=== PATIENT | female | born 1975 | race African-American/Black ===

== ENCOUNTER 2022-07-04 04:09 | Day surgery (SDC) | payer OTHER ==
[2022-06-28 13:00] VITALS: BMI 40.7
[2022-07-04] MEDS ORDERED: PROPOFOL 20 ML ONE (11:57)
[2022-07-04] MEDS ORDERED: MIDAZOLAM HCL 2 MG/2 ML SINGLE DOSE VIAL ONE (11:57)
[2022-07-04] MEDS ORDERED: LIDOCAINE HCL 2% 100 MG/5 ML DISP.SYRIN ONE (11:57)
[2022-07-04] MEDS ORDERED: LIDOCAINE HCL 2% (20ML MULTI-DOSE VIAL) ONE (12:14)
[2022-07-04] MEDS ORDERED: BUPIVACAINE HCL/PF 0.25% (2.5MG/ML) 10 ML VIAL ONE (12:14)
[2022-07-04] MEDS ORDERED: ceFAZolin SODIUM 1 GM VIAL ONE (12:22)
[2022-07-04] MEDS ORDERED: DEXAMETHASONE SOD PHOSPHATE 4 MG/1 ML VIAL ONE (12:22)
[2022-07-04] MEDS ORDERED: ceFAZolin SODIUM 1 GM VIAL IVPB ONE (12:25)
[2022-07-04] MEDS ORDERED: LIDOCAINE HCL 2% (50ML VIAL) NR ONE (12:33)
[2022-07-04] MEDS ORDERED: BUPIVACAINE HCL/PF 0.25% (2.5MG/ML) 10 ML VIAL IJ ONE (12:33)
[2022-07-04] MEDS ORDERED: ONDANSETRON 4 MG/2 ML VIAL ONE (12:40)
[2022-07-04] MEDS ORDERED: KETOROLAC TROMETHAMINE 30 MG/1 ML VIAL ONE (12:40)
[2022-07-04] MEDS ORDERED: DESFLURANE GAS 240 ML BOTTLE IH ONE (13:05)
[2022-07-04] MEDS ORDERED: oxyCODONE HCL 5 MG TABLET PO PRN ×2 (13:23)
[2022-07-04] MEDS ORDERED: PROMETHAZINE HCL 25 MG/1 ML VIAL IVPUSH PRN (13:23)
[2022-07-04] MEDS ORDERED: ONDANSETRON 4 MG/2 ML VIAL IVPUSH PRN (13:23)
[2022-07-04] MEDS ORDERED: LACTATED RINGERS SOLUTION 1,000 ML IV SCH (13:30)
[2022-07-04 15:10] VITALS: RESP 20
[2022-07-04 17:29] VITALS: BP 144/77; PULSE 64; TEMP 96.9
== END 2022-07-04 17:00 | disposition home or self-care (01) ==
LOC: JASU-SURG 04:09
PROC: 0SRP0JZ Replacement of Right Toe Phalangeal Joint with Synthetic Substitute, Open Approach (ICD-10-PCS; principal; 2022-07-04 12:00)
DX: M20.41 Other hammer toe(s) (acquired), right foot (principal)
CPT/HCPCS: 81025; 88304-TC; 88311-TC; 94760